=== PATIENT | male | born 1955 | race Caucasian/White ===

== ENCOUNTER 2018-08-15 08:04 | Inpatient (IN) | payer OTHER ==
[2018-08-15] MEDS ORDERED: GABAPENTIN 300 MG CAP PO ONE (09:02)
[2018-08-15] MEDS ORDERED: ACETAMINOPHEN 500 MG TAB PO ONE (09:02)
[2018-08-15] MEDS ORDERED: ceFAZolin 2 GM/DEXTROSE 100 ML IV ONE (09:02)
[2018-08-15] MEDS ORDERED: LR 1,000 ML IV ONE (09:03)
[2018-08-15 09:39] LABS: PLATELET COUNT 240 10^3/uL (150-400)
[2018-08-15] MEDS ORDERED: LIDOCAINE 2% 5 ML SDV ONE (09:54)
[2018-08-15] MEDS ORDERED: ONDANSETRON 4 MG/2 ML VIAL ONE (09:54)
[2018-08-15] MEDS ORDERED: fentaNYL 250 MCG/5 ML INJ ONE (09:54)
[2018-08-15] MEDS ORDERED: ROCURONIUM 50 MG/5 ML VIAL ONE (09:54)
[2018-08-15] MEDS ORDERED: DEXAMETHASONE 4 MG/ML VIAL ONE (09:54)
[2018-08-15] MEDS ORDERED: PROPOFOL/EMULSION 500 MG/50 ML BOTTLE IV ONE ×5 (09:55→14:04)
[2018-08-15] MEDS ORDERED: PROPOFOL 200 MG/20 ML VIAL ONE (09:55)
[2018-08-15] MEDS ORDERED: CHLORHEXIDINE GLUC HIBICLENS 118 ML BTL TP ONE (09:59)
[2018-08-15] MEDS ORDERED: BUPIVACAINE/EPI 0.25% 30 ML SDV ONE (09:59)
[2018-08-15] MEDS ORDERED: THROMBIN (BOVINE) 5,000 UNIT VIAL TP ONE (09:59)
[2018-08-15] MEDS ORDERED: BACITRACIN 50,000 UNITS/10 ML SYR IRR ONE (09:59)
[2018-08-15] MEDS ORDERED: MIDAZOLAM 2 MG/2 ML VIAL IVP ONE (10:40)
[2018-08-15] MEDS ORDERED: PROMETHAZINE HCL 25 MG/ML INJ IVP PRN (10:41)
[2018-08-15] MEDS ORDERED: PHENYLEPHRINE HCL 100 MCG/ML SYR IVP PRN (10:41)
[2018-08-15] MEDS ORDERED: MEPERIDINE 25 MG/0.5 ML AMP IVP PRN (10:41)
[2018-08-15] MEDS ORDERED: LR 500 ML IV PRN (10:41)
[2018-08-15] MEDS ORDERED: HYDROmorphONE/DILAUDID 2 MG/ML INJ IVP PRN (10:41)
[2018-08-15] MEDS ORDERED: METOCLOPRAMIDE 10 MG/2 ML VIAL IVP PRN (10:41)
[2018-08-15] MEDS ORDERED: ONDANSETRON 4 MG/2 ML VIAL IVP PRN ×2 (10:41→15:14)
[2018-08-15] MEDS ORDERED: oxyCODONE IR 5 MG TAB PO PRN (10:41)
[2018-08-15] MEDS ORDERED: NALOXONE HCL 0.4 MG/ML INJ IVP PRN (10:41)
--- NOTE | 2018-08-15 10:42 | PDANEPAE ---
ANE Past Medical History - Cardiovascular History Hx Hypertension: No Hx Arrhythmias: No Hx Chest Pain: No Hx Coronary Artery / Peripheral Vascular Disease: No Hx CHF / Valvular Disease: No Hx Palpitations: No - Pulmonary History Hx COPD: No Hx Asthma/Reactive Airway Disease: No Hx Recent Upper Respiratory Infection: No Hx Oxygen in Use at Home: No Hx Sleep Apnea: No Sleep Apnea Screening Result - Last Documented: Negative - Neurologic History Hx Cerebrovascular Accident: No Hx Seizures: No Hx Dementia: No - Endocrine History Hx Diabetes: No - Renal History Hx Renal Disorders: No - Liver History Hx Hepatic Disorders: No - Neurological & Psychiatric Hx Hx Neurological and Psychiatric Disorders: No - Cancer History Hx Cancer: No - Congenital Disorder History Hx Congenital Disorders: No - GI History Hx Gastrointestinal Disorders: No - Other Health History Other Health History: none - Chronic Pain History Chronic Pain: Yes (lower back) - Surgical History Prior Surgeries: none in last 10yrs. colonoscopy ANE Review of Systems Review of Systems: - Exercise capacity METS (RN): 4 METS ANE Patient History - Allergies Allergies/Adverse Reactions: Penicillins Allergy (Verified 08/08/18 17:24) Unknown - Home Medications Home Medications: Herbals/Supplements -Info Only 1 ea PO DAILY 08/02/18 [Last Taken 08/13/18] Ibuprofen [Motrin (*)] 600 mg PO HS 08/02/18 [Last Taken 08/11/18] - NPO status NPO Since - Liquids (Date): 08/15/18 NPO Since - Liquids (Time): 09:00 NPO Since - Solids (Date): 08/14/18 - Smoking Hx Smoking Status: Former smoker - Family Anes Hx Family Hx Anesthesia Complications: none ANE Labs/Vital Signs - Labs Result Diagrams: 08/15/18 09:20 08/15/18 09:20 - Vital Signs Blood Pressure: 128/84 Heart Rate: 63 Respiratory Rate: 16 O2 Sat (%): 96 Height: 175.26 cm Weight: 81.647 kg ANE Physical Exam - Airway Neck exam: FROM Mallampati Score: Class 1 Mouth exam: normal dental/mouth exam - Pulmonary Pulmonary: no respiratory distress, no rales or rhonchi, clear to auscultation - Cardiovascular Cardiovascular: regular rate and rhythym, no murmur, rub, or gallop - ASA Status ASA Status: II ANE Anesthesia Plan Anesthesia Plan: general endotracheal anesthesia
[2018-08-15] MEDS ORDERED: MIDAZOLAM 2 MG/2 ML VIAL ONE (10:45)
--- NOTE | 2018-08-15 10:59 | PDHPUP ---
History & Physical Update H&P update statement: This history and physical update is based on an assessment of the patient which was completed after admission or registration (within 24 hours), but prior to the surgery/procedure. H&P update: H&P reviewed & patient examined, no change in patient's condition since H&P completed
[2018-08-15] MEDS ORDERED: PHENYLEPHRINE HCL 100 MCG/ML SYR ONE ×2 (11:33→12:07)
[2018-08-15] MEDS ORDERED: EPINEPHrine 1 MG/10 ML SYR IVP ONE (11:56)
[2018-08-15] MEDS ORDERED: PHENYLEPHRINE 10 MG/ML SDV ONE (13:37)
[2018-08-15] MEDS ORDERED: diphenhydrAMINE 25 MG CAP PO PRN (15:14)
[2018-08-15] MEDS ORDERED: ONDANSETRON DISINTEGRATING 4 MG TAB PO PRN (15:14)
[2018-08-15] MEDS ORDERED: MAGNESIUM HYDROXIDE 30 ML UDCUP PO PRN (15:14)
[2018-08-15] MEDS ORDERED: POLYETHYLENE GLYCOL 3350 17 GM PKT PO PRN (15:14)
[2018-08-15] MEDS ORDERED: LACTULOSE 20 GM/30 ML UDCUP PO PRN (15:14)
[2018-08-15] MEDS ORDERED: BISACODYL 10 MG SUPP PR PRN (15:14)
[2018-08-15] MEDS ORDERED: NS 1,000 ML IV SCH (15:15)
--- NOTE | 2018-08-15 15:26 | POSTOPPROG ---
Post Op Note Date of Operation: 08/15/18 Surgeon: Reagan Cruz Stator Tester: Salome Spivey Anesthesia: GET(General Endotracheal) Pre-op Diagnosis: Cervical Stenosis with myelopathy Post-op Diagnosis: same Procedure: C2-C6 posterior decompression and fusion Inf/Abcess present in the surg proc area at time of surgery?: No Depth: Organ Space EBL: 100ml Drains: Say Rodriguez (to full suction) SOAP Progress Note Assessment/Plan: Assessment: Plan: 08/15/18 15:23 S: Patient waking up in PACU. Stable. O: Somnolent still, but following commands PERRL, EOMI CN II-XII grossly intact Cervical Collar in place TIPTON x4 FC x4 Incision c/d/i-dressed FEREDOM X1 to full suction A: 63 yo male sp posterior C2-C6 decompression and fusion for severe OPLL, and cervical stenosis with myelopathy P: -Admit to med surg -Hard collar at all times except to shower -Postop x-rays in am -PT/OT -Optimize pain control -FREEDOM X1 to full suction -DVT: TEDs, SCDs, Lovenox on POD#2 -Patient seen in PACU by Dr. Cruz Objective: Vital Signs Temp Pulse Resp BP Pulse Ox 37 C 63 16 128/84 H 96 08/15/18 09:17 08/15/18 10:42 08/15/18 10:42 08/15/18 10:42 08/15/18 10:42 Laboratory Results 08/15/18 09:20 08/15/18 09:20
[2018-08-15] MEDS ORDERED: METHOCARBAMOL 1,000 MG in NS 50 ML IV ONE (15:39)
--- NOTE | 2018-08-15 15:49 | PDMN ---
Medical Necessity Medical necessity: Pt meets inpt criteria per MD order and [facility] [id number]. Cervical Fusion, Posterior, 2 days, Medicare inpt only list. 63 y/o pt w/cervical stenosis and myelopathy, s/p C2-C6 posterior decompression and fusion.
[2018-08-15] MEDS ORDERED: fentaNYL 100 MCG/2 ML INJ ONE (16:05)
[2018-08-15] MEDS: fentaNYL 100 MCG/2 ML INJ IVP PRN ×2 (16:06→16:16)
--- NOTE | 2018-08-15 16:16 | GOP ---
DATE OF OPERATION: 08/15/2018 SURGEON: Reagan Cruz MD SENIOR MEDICAL WRITER: Salome Burt PA-C. ANESTHESIA: General endotracheal. 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 POSTOPERATIVE DIAGNOSIS: Cervical myelopathy with diffuse ossification of the posterior longitudinal ligament. PROCEDURE PERFORMED: 1. Posterior cervical decompression fusion C2-C6. 2. Placement of pedicle screw fixation at C2, C5, C6, and lateral mass screws at C3 and C4. 3. Complete laminectomies for decompression of the spinal cord. C2 through C6. 4. Posterior spinal fusion, C2-C6. 5. Use of Stealth/O arm stereotactic navigation for screw placement. 6. [place] of local autograft. 7. Use of allograft BMP. 8. Intraoperative neurophysiologic monitoring, including somatosensory evoked potentials and motor e voked potentials and EMG. FINDINGS: Successful spinal fusion. SPECIMENS: None. ESTIMATED BLOOD LOSS: 100 cc. INDICATIONS: This is a 63-year-old man who presented with difficulty with his balance and hands. He was clearly myelopathic. An MRI showed severe spinal cord compression with signal change in the cor d from C2-C6. Subsequent CT revealed that the anterior compression was caused by ossification of the posterior longitudinal ligament which was quite severe. Ultimately, given that, we discussed rap artist ior decompression and fusion as it did not appear it would be possible to decompress the cord anterio rly. DESCRIPTION OF PROCEDURE: After informed consent was obtained from the patient, the patient was brou ght to the operating room and a formal time-out was performed, identifying the patient by name, medic al record number and date of . Preoperative antibiotics were given. The endotracheal tube was placed and general endotracheal anesthesia was smoothly induced. All appropriate leads were placed f or intraoperative neurophysiologic monitoring and the patient's head was placed in the Shaffer pins and he was turned to the prone position on the Say table. All appropriate pressure points were p added and checked. The midline cervical incision was marked and the neck was prepped and draped in n ormal sterile fashion. 10 cc of 0.25% Marcaine with epinephrine was infiltrated in the skin for hemos tasis. The skin incision was then made using a 10 blade. The subcutaneous tissues were dissected us ing monopolar electrocautery. The early motor evoked potentials were quite diminished but able to be followed given his myelopathy. The fascia was opened in the midline and the avascular plane in the midline was dissected and the paraspinous muscles were taken down from the spinous processes, lamina and lateral masses from C2-C6. Once this anatomy was well identified, the navigation clamp was place d on C6 spinous process and an O-arm film was obtained showing the relevant anatomy from the occiput to C7. This was used to localize the entry point of pedicle screws at C2, C5 and C6 and lateral mass es at C3 and C4. Starting at C2 once the entry points were decorticated, the navigated drill was use d to drill through the pedicles on both sides and Medtronic Infinity 3.5 x 28 mm screws were placed a t C2. Lateral mass screws were then placed with a superior and lateral trajectory at C3 and C4 and t hese were 3.5 x 14 mm Medtronic infinity screws. We then used the drill and tap to drill the pedicle s at C5 and C6 and 3.5 x 24 mm screws were placed at C5 and 3.5 x 26 mm screws were placed at C6 bila terally. A 2nd O-arm film was obtained showing all the screws in good placement except for the left C2 screw, which was slightly low but within the bone. I did not like the trajectory of the screw, th at it would hold well in the bone. Therefore, this screw was removed and the trajectory was changed to a slightly more medial and superior trajectory. X-rays confirmed the change in placement. Motor evoked potentials remained stable without change at this time. At this point, a high-speed drill was used to drill lateral troughs over the lateral portion of the s kimberli canal and each lamina from C2-C6 was carefully disconnected on both sides, performing a wide de compression of the spinal cord from C2-C6. Foraminotomies were also performed to avoid any stretch t o the nerve roots. After the decompression, the motor evoked potentials and somatosensory evoked pot entials remained completely stable. At this point the wound was copiously irrigated using bacitracin irrigation. We then decorticated the lateral masses lateral to the screw heads for the posterior fu serge. Another set of motor-evoked potentials was ran after this and we had some drop out of the righ t foot MEP. After raising the blood pressure and allowing the gas anesthesia to wear down, this retu rned to baseline. We decorticated both sides of the lateral masses and a combination of BMP and mors elized autograft from the lamina spinous process was placed laterally for a posterolateral fusion fro m C2-C6. The screw heads were then connected with 60 mm titanium rods, which were locked in place us ing the locking caps which were tightened to the manufacture's specifications. At this point, again, the motor evoked potentials and somatosensory evoked potentials were at baseline. The wound was copy lathe tender iously irrigated using bacitracin irrigation. A 10-Belarusian FREEDOM drain was placed in the subfascial spac e. The muscle was tacked closed in the midline using interrupted 0 Vicryl. The fascia was closed us ing interrupted 0 Vicryl. The deep dermis closed using interrupted 2-0 Vicryl. The skin was closed using Steri-Strips. Sterile dressings were placed. The patient was turned back in the supine positi on. He was extubated and transferred to the PACU in stable condition. There were no operative compl ications. I was scrubbed and present for the entire procedure. All sponge and counts were correct a t the end of the case. FLUIDS/URINE OUTPUT: Per the anesthesia record. DRAINS: Subfascial FREEDOM. /[id number]/MODL
--- NOTE | 2018-08-15 16:27 | POSTANESTH ---
Post Anesthetic Evaluation Cardiovascular Status: Normal, Stable Respiratory Status: Normal, Stable Level of Consciousness/Mental Status: Can Participate in Eval Pain Control: Adequate, Prn Tx Ordered Nausea/Vomiting Control: Adequate, Prn Tx Ordered Complications Possibly Related to Anesthesia: None Noted
[2018-08-15] MEDS: METHOCARBAMOL 750 MG TAB PO SCH ×2 (17:23→21:54)
[2018-08-15] MEDS: POLYETHYLENE GLYCOL 3350 17 GM PKT PO SCH ×2 (17:23→21:54)
[2018-08-15] MEDS: ceFAZolin 2 GM/DEXTROSE 100 ML IV SCH (20:29)
[2018-08-15] MEDS: SENNOSIDES/DOCUSATE SODIUM TAB PO SCH (21:54)
[2018-08-15] MEDS: ACETAMINOPHEN 500 MG TAB PO SCH (21:54)
[2018-08-15] MEDS: GABAPENTIN 300 MG CAP PO SCH (21:55)
[2018-08-15] MEDS: FAMOTIDINE 20 MG TAB PO SCH (21:55)
[2018-08-16] MEDS: ceFAZolin 2 GM/DEXTROSE 100 ML IV SCH (04:28)
[2018-08-16] MEDS: ACETAMINOPHEN 500 MG TAB PO SCH (05:56)
[2018-08-16] MEDS: METHOCARBAMOL 750 MG TAB PO SCH ×4 (05:56→21:47)
[2018-08-16] MEDS: GABAPENTIN 300 MG CAP PO SCH ×3 (05:57→21:49)
[2018-08-16] MEDS ORDERED: HYDROCODONE/APAP 5/325 TAB PO PRN (08:44)
--- NOTE | 2018-08-16 08:48 | NEUSURGPN ---
Assessment/Plan: Assessment: Plan: 08/15/18 15:23 S: Patient doing well. Has improved burning and numbness. Has soem slight weakness in left deltoid and biceps that he feels may be new. Pain well controlled but wants to try [place] for something stronger than Tylenol. O: Awake, Alert PERRL, EOMI CN II-XII grossly intact Cervical Collar in place BUE 5/5 except for left bicep/deltoid 4/5 Incision c/d/i-dressed FREEDOM X1 to full suction- output 170 will keep today A: 63 yo male POD #1 sp posterior C2-C6 decompression and fusion for severe OPLL , and cervical stenosis with myelopathy P: -Neuro: Overall doing well -Hard collar at all times except to shower -Postop x-rays today -Will add [place] for pain and dc scheduled tylenol -PT/OT -Optimize pain control -FREEDOM X1 to full suction- will keep today -DVT: TEDs, SCDs, Lovenox on POD#2 -Dispo- Most likely home tomorrow if cleared by PT and pain well controlled -Patient discussed with Dr. Cruz - Physician Discussed Patient with : Nancy Neurosurgery Physical Exam - Vitals, I&O, Labs I and O 08/15/1818 18 05:59 05:59 05:59 Intake Total 4075 Output Total 2960 Balance 1115 Weight 81.647 kg Intake: Oral (ml) 1075 IV Intake (ml) 2000 IV Infused (ml) 1000 Ns 1,000 ml @ 75 mls/hr 800 IV CONT RYANN Rx#: [id number] ceFAZolin 2 GM/DEXTROSE 200 100 ml @ 200 mls/hr IV Q8H [facility] Rx#:[id number] Output: Urine (ml) 2600 Catheter 2600 Estimated Blood Loss (ml) 100 FREEDOM Drain Output (ml) 260 #1 Posterior Neck Say 260 Rodriguez Other: Intake Quantity Yes Sufficient Number of Voids Catheter 1 Vital Signs Temp Pulse Resp BP Pulse Ox 37.0 C 88 14 110/66 97 08/16/18 08:00 08/16/18 08:00 08/16/18 08:00 08/16/18 08:00 08/16/18 08:00 Laboratory Results 08/15/18 09:20 08/15/18 09:20 ICD10 Worksheet Patient Problems: Problems Problem Status Onset Cervical myelopathy with cervical radiculopathy Acute - ICD10 Problem Qualifiers (1) Cervical myelopathy with cervical radiculopathy
[2018-08-16] MEDS: POLYETHYLENE GLYCOL 3350 17 GM PKT PO SCH ×3 (08:57→21:47)
[2018-08-16] MEDS: FAMOTIDINE 20 MG TAB PO SCH ×2 (08:57→21:48)
[2018-08-16] MEDS: SENNOSIDES/DOCUSATE SODIUM TAB PO SCH ×2 (08:58→21:48)
[2018-08-16] MEDS: oxyCODONE IR 5 MG TAB PO PRN (21:57)
[2018-08-17] MEDS: oxyCODONE IR 5 MG TAB PO PRN ×4 (03:28→20:49)
[2018-08-17] MEDS: GABAPENTIN 300 MG CAP PO SCH ×3 (05:58→21:07)
[2018-08-17] MEDS: METHOCARBAMOL 750 MG TAB PO SCH ×4 (05:58→20:49)
--- NOTE | 2018-08-17 06:08 | NEUSURGPN ---
Assessment/Plan: A: 63 yo male POD #2 sp posterior C2-C6 decompression and fusion for severe OPLL , and cervical stenosis with myelopathy P: -Neuro: Overall doing well -Hard collar at all times except to shower -Postop x-rays with intact hardware -Optimize pain management -PT/OT -FREEDOM X1 to full suction-may pull later today, will take off of suction this morning -DVT: TEDs, SCDs, Lovenox (will hold this morning) -Dispo planning -Patient discussed with Dr. Cruz Subjective: Pain tolerable with medications Objective: Awake, Alert BUE 5/5 except for left bicep/deltoid 4/5 Incision c/d/i-dressed FREEDOM X1 serosanguineous - Physician Discussed Patient with : Nancy Neurosurgery Physical Exam - Vitals, I&O, Labs I and O 08/16/18 08/17/18 08/18/18 05:59 05:59 05:59 Intake Total 4075 1400 Output Total 2960 1225 Balance 1115 175 Weight 81.647 kg Intake: Oral (ml) 1075 1400 IV Intake (ml) 2000 IV Infused (ml) 1000 Ns 1,000 ml @ 75 mls/hr 800 IV CONT RYANN Rx#: [id number] ceFAZolin 2 GM/DEXTROSE 200 100 ml @ 200 mls/hr IV Q8H RYANN Rx#:[id number] Output: Urine (ml) 2600 700 Catheter 2600 Toilet 700 Estimated Blood Loss (ml) 100 FREEDOM Drain Output (ml) 260 525 #1 Posterior Neck Say 260 525 Rodriguez Other: Intake Quantity Yes Yes Sufficient Number of Voids Catheter 1 Toilet 1 Vital Signs Temp Pulse Resp BP Pulse Ox 36.8 C 80 14 133/75 H 98 08/16/18 15:44 08/16/18 15:44 08/16/18 15:44 08/16/18 15:44 08/16/18 15:44 Laboratory Results 08/15/18 09:20 08/15/18 09:20 ICD10 Worksheet Patient Problems: Problems Problem Status Onset Cervical myelopathy with cervical radiculopathy Acute
[2018-08-17] MEDS: POLYETHYLENE GLYCOL 3350 17 GM PKT PO SCH ×3 (07:39→21:08)
[2018-08-17] MEDS: FAMOTIDINE 20 MG TAB PO SCH ×2 (07:39→20:49)
[2018-08-17] MEDS: SENNOSIDES/DOCUSATE SODIUM TAB PO SCH ×2 (07:40→20:50)
[2018-08-17] MEDS: ENOXAPARIN 40 MG/0.4 ML SYR SC SCH (07:46)
--- NOTE | 2018-08-17 10:31 | ASMTCMCOM ---
CM Note CM Note Notes: CM reviewed pt's chart for d/c planning. Pt is a 63 y/o male admitted due to cervical myelopathy with diffuse ossification of the posterior longitudinal ligament. A spinal fusion was completed on 08/15/2018. OT has recommended OP rehab. PT has not been ordered. Pt works for [employer] and is to [facility] #[phone] (cell). They live in [place]. No CM needs have been identified; CM will follow for changes. D/C Plan: Anticipate independent. Date Signed: 08/17/2018 10:31 AM Electronically Signed By:Shanika Jordan
[2018-08-18] MEDS: oxyCODONE IR 5 MG TAB PO PRN ×3 (00:50→09:52)
[2018-08-18] MEDS: METHOCARBAMOL 750 MG TAB PO SCH (05:13)
[2018-08-18] MEDS: GABAPENTIN 300 MG CAP PO SCH (05:14)
[2018-08-18] MEDS: FAMOTIDINE 20 MG TAB PO SCH (07:31)
[2018-08-18] MEDS: SENNOSIDES/DOCUSATE SODIUM TAB PO SCH (07:31)
[2018-08-18] MEDS: POLYETHYLENE GLYCOL 3350 17 GM PKT PO SCH (07:32)
--- NOTE | 2018-08-18 07:56 | NEUSURGPN ---
Date of Surgery: 08/15/18 Post Op Day: 3 Assessment/Plan: Assessment: 63 yo male POD #3 s/p posterior C2-C6 decompression and fusion for severe OPLL, and cervical stenosis with myelopathy Plan: -Neuro: Overall doing well -Hard collar at all times except to shower -CDI -Drain to be removed -Postop x-rays with intact hardware -Optimize pain management -PT/OT-CPM -FREEDOM output 75 -DVT: TEDs, SCDs, Lovenox (will hold this morning) -Dispo planning -Patient discussed with Dr. Cruz Subjective: Awake and alert. No new complaints or concerns. Pt with some achey neck pain. No long/cp/sob/abd or gu complaints. No f/c/n/v/d. Objective: AAO x 3, PERRLA/EOMI no droop CN 2-12 grossly intact +lt touch 5/5 BUE/BLE = CDI FREEDOM removed/dressing changed Neuro Check Frequency: per routine Urinary Catheter in Place: No - Physician Discussed Patient with : Nancy Neurosurgery Physical Exam - Vitals, I&O, Labs I and O 08/17/18 08/18/18 08/19/18 05:59 05:59 05:59 Intake Total 1400 1500 Output Total 1225 275 Balance 175 1225 Intake: Oral (ml) 1400 1500 Output: Urine (ml) 700 Toilet 700 FREEDOM Drain Output (ml) 525 275 #1 Posterior Neck Say 525 275 Rodriguez Other: Intake Quantity Yes Sufficient Number of Voids Toilet 1 2 Number of Stools Toilet 1 Vital Signs Temp Pulse Resp BP Pulse Ox 37.7 C 90 16 107/62 93 08/17/18 23:31 08/17/18 23:31 08/17/18 23:31 08/17/18 23:31 08/17/18 23:31 Laboratory Results 08/15/18 09:20 08/15/18 09:20 ICD10 Worksheet Patient Problems: Problems Problem Status Onset Cervical myelopathy with cervical radiculopathy Acute
[2018-08-18 08:23] VITALS: BP 117/90
[2018-08-18] MEDS: ENOXAPARIN 40 MG/0.4 ML SYR SC SCH (11:10)
--- NOTE | 2018-08-18 16:10 | ASMTLACE ---
[place]IS[place] Length of stay for Answers: 3 days current admission Acuity / Level of Answers: Yes Care: Did the patient have an inpatient admission? Comorbidities - select Answers: Opioid dependence all that apply / Chronic pain # of Emergency department Answers: 0 visits in the last 6 months Score: 10 Date Signed: 08/18/2018 04:09 PM Electronically Signed By:Sonya De RN
--- NOTE | 2018-08-18 16:13 | ASDISCHSUM ---
Discharge Information Plan Status:Home with No Needs Medically Cleared to Leave:08/17/2018 Discharge Date:08/18/2018 12:16 PM CM D/C Disposition:Home, Routine, Self-Care ADT D/C Disposition:Home, Routine, Self-Care Projected Discharge Date:08/18/2018 12:16 PM Transportation at D/C:Family Discharge Delay Reason: Follow-Up Date:08/18/2018 12:16 PM Discharge Slot:2 - 12:01 pm - 18:00 pm Final Diagnosis:Posterior C2-C6 decompression and fusion for cervical stenosis with myelopathy Placement Information Patient Contact Information Contact Name:KEILA Relationship: Address: City: [facility] Phone: [facility] Code: Email: Financial Information Financial Class:[employer] [place] Desc[place] Primary Plan Number:[id number] Secondary Plan Desc: Secondary Plan Number: Assessment Information LACE LACE Length of stay for Answers: 3 days current admission Acuity / Level of Answers: Yes Care: Did the patient have an inpatient admission? Comorbidities - select Answers: Opioid dependence all that apply / Chronic pain # of Emergency department Answers: 0 visits in the last 6 months Score: 10 Date Signed: 08/18/2018 04:09 PM Electronically Signed By:Sonya De RN [facility] Progress Note CM Note CM Note Notes: CM reviewed pt's chart for d/c planning. Pt is a 63 y/o male admitted due to cervical myelopathy with diffuse ossification of the posterior longitudinal ligament. A spinal fusion was completed on 08/15/2018. OT has recommended OP rehab. PT has not been ordered. Pt works for [employer] and is to [facility] #[phone] (cell). They live in [place]. No CM needs have been identified; CM will follow for changes. D/C Plan: Anticipate independent. Date Signed: 08/17/2018 10:31 AM Electronically Signed By:Shanika Jordan Case Management Discharge Plan Note Case Management Discharge Discharge Order Complete? Answers: Yes Patient to Obtain Answers: Independently Medications Transportation Arranged Answers: Family/Friends Transport will Pick (Date 08/18/2018 12:00 AM & Time) EMTALA Complete Answers: No Notes: N/A Case Management Transport Answers: No Notes: N/A Form Complete Faxed Final Orders Answers: No Notes: N/A Agency/Facility Transfer Answers: No Notes: N/A Report Printed & Faxed to Receiving Agency Family Notified Answers: No Notes: Pt to notify Discharge Comments Notes: Reviewed chart regarding discharge plan of care, pt's progress. Pt to discharge home independently with no identified needs. No IM/HIGUERA signed, not applicable. Pt to follow up as directed. CM available for any further issues or concerns. Discharge Plan: Home independently Date Signed: 08/18/2018 04:12 PM Electronically Signed By:Sonya De RN Intervention Information
== END 2018-08-18 12:16 | disposition home or self-care (01) | DRG 454 ==
LOC: F3N 08:04
PROVIDERS: ADMIT Neurological Surgery; ATTEND Neurological Surgery
DX: M50.00 Cervical disc disorder with myelopathy, unspecified cervical region (principal); M47.12 Other spondylosis with myelopathy, cervical region; M48.02 Spinal stenosis, cervical region; Z87.891 Personal history of nicotine dependence
CPT/HCPCS: 97165-GO; 97535-GO; C1713; G8987-GO-CI; G8988-GO-CH; G8989-GO-CI; J0690; J1100; J1650; J2250; J2370; J2405; J2704; J2800; J3010

== ENCOUNTER → 2018-09-27 | Outpatient (CLI) | payer OTHER | LOC: FIMAGING 09:20 | PROVIDERS: ATTEND Physician Assistant | DX: M48.12 Ankylosing hyperostosis [Forestier], cervical region (principal); M47.12 Other spondylosis with myelopathy, cervical region; M48.02 Spinal stenosis, cervical region; Z98.1 Arthrodesis status ==